=== PATIENT | male | born 1955 | race Caucasian/White ===

== ENCOUNTER 2016-10-02 09:14 | Emergency (ER) | payer MEDICARE, MEDICAID ==
[~2016-10-02] VITALS: Ht 170.2 cm; Wt 61.4 kg
[2016-10-02] MEDS ORDERED: HYDROmorphONE 2 MG/ML SYG IM STA (09:30)
[2016-10-02 09:31] VITALS: Ht 170.2 cm; Wt 61.4 kg
--- NOTE | 2016-10-02 09:33 | ERD ---
ER Documentation Chief Complaint Date/Time DATE: 10/02/16 TIME: 09:30 Chief Complaint HPI This is a 61-year-old male with a history of neurogenic bladder and suprapubic Corona catheter who presents to the emergency room for reinsertion of his suprapubic catheter. The patient states that last night his catheter got tangled in his bed and he pulled it on accident. The patient states that he has had a catheter for 3 years and it was removed on accident approximately 6 hours ago. He is being treated for urinary tract infection at this time and is also stating he is on Pyridium ROS All systems reviewed and are negative except as per history of present illness. Physical Exam Physical Exam Const: No acute distress Head: Atraumatic Eyes: Normal Conjunctiva ENT: Normal External Ears, Nose and Mouth. Neck: Full range of motion..~ No meningismus. Resp: Clear to auscultation bilaterally Cardio: Regular rate and rhythm, no murmurs Abd: Soft, non tender, non distended. Normal bowel sounds Skin: Suprapubic ostomy site draining urine,, no petechiae or rashes Back: No midline or flank tenderness Ext: No cyanosis, or edema Neur: Awake and alert Psych: Normal Mood and Affect Procedures/MDM Corona placement by me: Indication: Nursing staff unable to obtain corona access. Anesthesia: Lidocaine Jelly Technique: Gin insertion after lubrication Results: Urine flow, Balloon inflated Complicat: None Bladder Scan: performed by me. Indication: Urinary retention Findings: Approximately 100 mL of bladder fluid This 61-year-old male presents to the ER for evaluation of suprapubic catheter replacement. When I evaluated patient he did have drainage from his ostomy. I did replace a suprapubic Corona here in the emergency room. The patient did have relief of his symptoms and had 100 cc immediately of output. The patient was given intramuscular Dilaudid for pain and will be discharged back to the care home at this time. Departure Diagnosis: Primary Impression: Suprapubic catheter dysfunction Additional Impression: Encounter for suprapubic catheter care Condition: MARCO A Charles DO Oct 02, 2016 09:32
== END 2016-10-02 11:11 | disposition home or self-care (01) ==
LOC: E/R 09:14
DX: T83.428A Displacement of other prosthetic devices, implants and grafts of genital tract, initial encounter (principal); Y73.2 Prosthetic and other implants, materials and accessory gastroenterology and urology devices associated with adverse incidents
CPT/HCPCS: 96372; 99284; J1170

== ENCOUNTER 2016-11-10 15:57 | Emergency (ER) | payer MEDICARE, OTHER ==
[~2016-11-10] VITALS: Ht 170.2 cm; Wt 70.4 kg
--- NOTE | 2016-11-10 16:07 | ERD ---
ER Documentation Chief Complaint Date/Time DATE: 11/10/16 TIME: 16:05 Chief Complaint HPI 61-year-old male who presents emergency room after accidentally removing his suprapubic catheter. He states that it was caught on the bed and just removed prior to arrival. He is unsure when this catheter was placed. He denies any significant pain or bleeding. He has no other complaints. He does not currently follow urologist. ROS All systems reviewed and are negative except as per history of present illness. Allergies Allergies: Coded Allergies: No Known Allergy (Unverified , 10/02/16) PMhx/Soc History of Surgery: Yes (SUPRAPUBIC CATHETER, VALVE REPLACEMENT, STENT ) Hx Cardiac Disorders: Yes (HTN) Hx Alcohol Use: Yes Hx Substance Use: No Hx Tobacco Use: Yes FmHx Family History: No diabetes Physical Exam Vitals Vital Signs Date Time Temp Pulse Resp B/P Pulse Ox O2 Delivery O2 Flow Rate FiO2 11/10/16 16:20 98.6 81 16 107/67 92 Physical Exam General: Well developed, well nourished, no acute distress Head: Normocephalic, atraumatic. Eyes: EOM intact ENT: Moist mucous membranes Neck: Full ROM Respiratory: No respiratory distress Cardiovascular: Good capillary refil Abdominal: Nondistended, suprapubic catheter site is well-appearing without excoriations or rash : Deferred MSK: No edema, no unilateral swelling, 5/5 strength Neurologic: Alert and oriented, moving all extremities, normal speech, steady gait Skin: No rash Psych: Normal mood Results 24 hrs Current Medications Medications (Trade) Dose Ordered Sig/Baron Route PRN Reason Start Time Stop Time Status Last Admin Dose Admin Morphine Sulfate (Ms Contin (Er)) 15 mg ONCE ONCE PO 11/10/16 16:30 11/10/16 16:31 DC Procedures/MDM PROCEDURES: Suprapubic catheter placement. The patient was verbally consented prior to procedure. A sterile procedure was performed. The wound and stoma area was cleansed with chlorhexidine. Insertion of a sterile 22 [place]ic suprapubic catheter using a suprapubic catheter kit was performed with gentle pressure. Return of urine was obtained, inflation of balloon performed. The tube was secured to the skin and a bag was placed. There is adequate and active drainage of urine signifying appropriate placement. The patient tolerated procedure well there were no complications. MEDICAL DECISION MAKING: The patient presents after accidentally removing a suprapubic catheter. Replacement is appropriate. I will reach out to urology to discuss options. Dr. Matias who states that bedside placement by myself is appropriate using a suprapubic catheter kit. No further imaging required. He can consult on the case if we cannot place the catheter. ER COURSE: Suprapubic catheter replaced as documented above. Patient initially asked for his regular dose of morphine but then states that he does not want it. This is for his chronic pain. I kept the patient and/or family informed of laboratory and diagnostic imaging results throughout the emergency room course. DISPOSITION PLAN: We discussed follow up with the patient's primary care doctor within 24 to 48 hours as needed. We also discussed return to the emergency room for worsening symptoms or worsening condition. Outpatient referral: Urology Discharge Medications: None required Departure Diagnosis: Primary Impression: Encounter for suprapubic catheter care Additional Impression: Chronic pain Chronic pain type: other chronic pain Qualified Code: G89.29 - Other chronic pain Condition: VINNIE Vazquez MD Nov 10, 2016 16:06
[2016-11-10 16:20] VITALS: Ht 170.2 cm; Wt 70.4 kg
[2016-11-10] MEDS ORDERED: morphine (ER) 15 MG TAB PO ONE (16:30)
== END 2016-11-10 17:15 | disposition home or self-care (01) ==
LOC: E/R 15:57
DX: T83.098A Other mechanical complication of other urinary catheter, initial encounter (principal); G89.29 Other chronic pain; I10 Essential (primary) hypertension; Y73.3 Surgical instruments, materials and gastroenterology and urology devices (including sutures) associated with adverse incidents; Z87.891 Personal history of nicotine dependence
CPT/HCPCS: 99283